=== PATIENT | female | born 1965 | race Caucasian/White ===

== ENCOUNTER 2017-01-17 21:06 | Emergency (ER) | payer OTHER ==
[2017-01-17 21:15] VITALS: BP 140/98; PULSE 74; TEMP 98.7; BMI 23.0
[2017-01-17] MEDS ORDERED: ONDANSETRON *ODT* 4 MG TABLET ONE (21:38)
[2017-01-17] MEDS ORDERED: ONDANSETRON *ODT* 4 MG TABLET SL ONE (21:49)
--- NOTE | 2017-01-17 21:55 | PDOC ---
History of Present Illness - General Chief Complaint: Nausea/Vomiting Stated Complaint: VOMITING/FEVER/BODY ACHE Time Seen by Provider: 01/17/17 21:25 History Source: Patient Exam Limitations: No Limitations - History of Present Illness Initial Comments: 01/17/17 21:50 , generalized body aches and chills, moist non productive cough, ear and throat pain . Nausea. x 2 days. 01/17/17 21:56 Timing/Duration: unsure, 24 hours Severity: moderate Modifying Factors: improves with: cold therapy Associated Symptoms: reports: cough, fever/chills, headaches, malaise, nausea/ vomiting Past History - Travel Traveled outside of the country in the last 30 days: No Close contact w/someone who was outside of country & ill: No - Past Medical History Allergies/Adverse Reactions: Allergies Allergy/AdvReac Type Severity Reaction Status Date / Time azithromycin [From Zithromax] Allergy Verified 01/17/17 21:12 Home Medications: Ambulatory Orders Interferon Beta-1A [Avonex] 30 mcg IM 01/17/17 Modafinil [Provigil] 100 mg PO 01/17/17 Oseltamivir Phosphate [Tamiflu -] 75 mg PO BID #10 capsule 01/17/17 Other medical history: MS - Surgical History Abdominal Surgery: Yes (tubal ligation) Gastric Stapling: Yes (bypass 2008) - Immunization History Td Vaccination: Yes Immunization Up to Date: Yes - Psycho/Social/Smoking Cessation Hx Anxiety: No Suicidal Ideation: No Smoking Status: No Smoking History: Never smoked Years of Tobacco Use: 0 Number of Cigarettes Smoked Daily: 0 Cigars Per Day: 1 Information on smoking cessation initiated: No Hx Alcohol Use: No Drug/Substance Use Hx: No Review of Systems - Review of Systems Able to Perform ROS?: Yes Is the patient limited Lithuanian proficient: Yes Constitutional: Yes: Symptoms Reported, See HPI, Chills, Fever, Loss of Appetite , Malaise HEENTM: Yes: Symptoms Reported, See HPI, Ear Pain, Nose Congestion, Throat Pain Respiratory: Yes: Symptoms reported, See HPI, Cough (nonproductive) ABD/GI: Yes: Symptoms Reported, See HPI, Nausea, Vomiting Musculoskeletal: Yes: Symptoms Reported, Muscle Pain Integumentary: Yes: Symptoms Reported All Other Systems: Reviewed and Negative *Physical Exam - Vital Signs Last Vital Signs Temp Pulse Resp BP Pulse Ox 98.7 F 74 14 140/98 97 01/17/17 21:13 01/17/17 21:13 01/17/17 21:13 01/17/17 21:13 01/17/17 21:13 - Physical Exam General Appearance: Yes: Nourished, Appropriately Dressed, Apparent Distress, Mild Distress, Moderate Distress HEENT: positive: DOMENIC (glassy), Normal ENT Inspection, TMs Normal (congested), Pharyngeal Erythema, Nasal Congestion, Rhinorrhea Neck: positive: Supple, Lymphadenopathy (R), Lymphadenopathy (L) Respiratory/Chest: positive: Lungs Clear, Normal Breath Sounds (congested but clear ), Wheezing Cardiovascular: positive: Regular Rate Gastrointestinal/Abdominal: positive: Normal Bowel Sounds, Soft Extremity: positive: Normal Capillary Refill, Normal Inspection Integumentary: positive: Dry, Warm, Pale 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 Avoid contact with others until fevers and cough resolved as this is very contagious Lots of handwashing and good hygiene Continue [id number] medications for symptomatic relief Tylenol or Motrin for fever and pain Take all of Tamiflu as directed: 1 tab every 12 hours for 5 days Followup with private physician in one to 2 days as needed or if worsening Return to emergency department for worsened symptoms, fevers, dehydration Influenza takes between 5 and 7 days for resolution To not participate in any activity, work, or school until fevers and cough are gone for at least one day - Post Discharge Activity Work/School Note: Back to Work
== END 2017-01-17 22:22 | disposition home or self-care (01) ==
LOC: JERFT 21:06
DX: J11.1 Influenza due to unidentified influenza virus with other respiratory manifestations (principal)
CPT/HCPCS: 99281-25

== ENCOUNTER 2017-08-25 20:42 | Emergency (ER) | payer OTHER ==
[2017-08-25 20:53] VITALS: BP 137/102; PULSE 65; TEMP 98.2; BMI 23.1
[2017-08-25] MEDS ORDERED: IBUPROFEN 600 MG TABLET (FP) PO ONE ×2 (20:53→21:04)
--- NOTE | 2017-08-25 20:53 | PDOC ---
Rapid Medical Evaluation Time Seen by Provider: 08/25/17 20:49 Medical Evaluation: Allergies Allergy/AdvReac Type Severity Reaction Status Date / Time azithromycin [From Zithromax] Allergy Verified 01/17/17 21:12 08/25/17 20:50 I have performed a brief in-person evaluation of this patient. The patient presents with a chief complaint of left 3rd toe pain s/p striking it on a baby gait. Pertinent physical exam findings: Ext: erythema and swelling to distal portion of 3rd digit of the left foot. No deformity noted. I have ordered the following: Motrin 600mg PO The patient will proceed to the ED for further evaluation.
--- NOTE | 2017-08-25 21:15 | PDOC ---
History of Present Illness - General Chief Complaint: Pain Stated Complaint: FOOT INJURY Time Seen by Provider: 08/25/17 20:49 History Source: Patient Exam Limitations: No Limitations - History of Present Illness Initial Comments: 08/25/17 21:11 kicked babygate 4 days ago and bruised and injured 3rd left toe 1 week ago, this AM slid into wall and reinjured. Tried to splint unsucessfully. Came for evaluation. Occurred: reports: last week Severity: reports: mild, moderate Pain Location: reports: lower extremity (left 3rd toe) Associated Symptoms (Fall): denies symptoms Past History - Travel Traveled outside of the country in the last 30 days: No Close contact w/someone who was outside of country & ill: No - Past Medical History Allergies/Adverse Reactions: Allergies Allergy/AdvReac Type Severity Reaction Status Date / Time azithromycin [From Zithromax] Allergy Verified 08/25/17 20:51 Home Medications: Ambulatory Orders Interferon Beta-1A [Avonex] 30 mcg IM ASDIR 01/17/17 Modafinil [Provigil] 100 mg PO ASDIR 01/17/17 COPD: No Other medical history: MS - Surgical History Abdominal Surgery: Yes (tubal ligation) Gastric Stapling: Yes (bypass 2008) - Immunization History Td Vaccination: Yes Immunization Up to Date: Yes - Suicide/Smoking/Psychosocial Hx Smoking Status: No Smoking History: Never smoked Years of Tobacco Use: 0 Have you smoked in the past 12 months: No Number of Cigarettes Smoked Daily: 0 Cigars Per Day: 1 Information on smoking cessation initiated: No Hx Alcohol Use: No Drug/Substance Use Hx: No Substance Use Type: None Review of Systems - Review of Systems Able to Perform ROS?: Yes Is the patient limited Moldovan proficient: Yes Constitutional: Yes: Symptoms Reported, See HPI. No: Fever HEENTM: No: Symptoms Reported Musculoskeletal: Yes: Symptoms Reported, See HPI, Joint Pain, Joint Swelling, Joint Stiffness *Physical Exam - Vital Signs Last Vital Signs Temp Pulse Resp BP Pulse Ox 98.2 F 65 18 137/102 99 08/25/17 20:51 08/25/17 20:51 08/25/17 20:51 08/25/17 20:51 08/25/17 20:51 - Physical Exam General Appearance: Yes: Nourished, Appropriately Dressed, Apparent Distress, Mild Distress HEENT: positive: DOMENIC, Normal ENT Inspection, TMs Normal, Pharynx Normal Neck: positive: Supple. 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, Fully Oriented, Alert, Normal Mood/ Affect, Normal Response, Motor Strength 02/26 Progress Note - Progress Note Progress Note: toe fracture , no xray- will treat with carloz tape = *DC/Admit/Observation/Transfer Diagnosis at time of Disposition: Toe fracture, left Qualifiers: Encounter type: initial encounter Toe: lesser toe Fracture type: closed Phalanx : distal Fracture alignment: nondisplaced Qualified Code(s): S92.535A - Nondisplaced fracture of distal phalanx of left lesser toe(s), initial encounter for closed fracture; S92.535A - Nondisplaced fracture of distal phalanx of left lesser toe(s), initial encounter for closed fracture - Discharge Dispostion Disposition: HOME Condition at time of disposition: Stable Admit: No - Patient Instructions Printed Discharge Instructions: DI for Toe Fracture Additional Instructions: Rest, ice to area on and off for 15 minutes 4-6 times a day Avoid heavy lifting or exercise until pain and swelling is resolved or until further directed Keep area highly elevated to reduce swelling Use splints/Kirill wrap as directed Followup with orthopedist in one to 2 days if not improving, if significantly improved may wait one week for followup with orthopedist May use ibuprofen 2-200 mg tablets every 6 hours as needed for pain - Post Discharge Activity Forms/Work/School Notes: Back to Work
== END 2017-08-25 21:16 | disposition home or self-care (01) ==
LOC: JERFT 20:42
PROC: 2W3RX1Z Immobilization of Left Lower Leg using Splint (ICD-10-PCS; principal; 2017-08-25)
DX: S92.535A Nondisplaced fracture of distal phalanx of left lesser toe(s), initial encounter for closed fracture (principal); W22.8XXA Striking against or struck by other objects, initial encounter; Y93.89 Activity, other specified; Y92.019 Unspecified place in single-family (private) house as the place of occurrence of the external cause; G35 Multiple sclerosis; Z98.84 Bariatric surgery status
CPT/HCPCS: 99281-25

== ENCOUNTER 2017-10-07 23:35 | Emergency (ER) | payer OTHER ==
[2017-10-07] MEDS ORDERED: ASPIRIN 81 MG CHEWABLE TABLETS PO ONE (23:46)
[2017-10-07 23:51] VITALS: BMI 23.8
[2017-10-08] MEDS ORDERED: ASPIRIN 81 MG CHEWABLE TABLETS ONE (00:19)
[2017-10-08 00:32] LABS: EOSINOPHIL 1.8 % (0-4.5); MCHC 33.3 g/dl (32.0-36.0); MEAN CELL VOLUME 87.1 fl (80-96); MEAN PLT VOLUME 7.9 fl (7.5-11.1); NEUTROPHILS 48.1 % (42.8-82.8); PLATELET COUNT 207 K/MM3 (134-434); RDW 12.9 % (11.6-15.6); WHITE BLOOD COUNT 4.8 K/mm3 (4.0-10.0)
--- NOTE | 2017-10-08 00:34 | PDOC ---
History of Present Illness - General Chief Complaint: Chest Pain Stated Complaint: CHEST PAIN Time Seen by Provider: 10/07/17 23:43 - History of Present Illness Initial Comments: 10/08/17 00:34 CHIEF COMPLAINT: chest pain HISTORY OF PRESENT ILLNESS: 51 yo F with hx of MS presents to ED with chest pain today. Patient reports that she felt pain from her chest "that went to my back" today when reaching for an object. She also reports the pain began after "shoveling snow this morning." Patient reports that the pain is localized to the right side of her chest and back and does not radiate anywhere. Patient denies any shortness of breath but does report the pain worsens when she breathes deeply. No recent travel or sick contacts. PAST MEDICAL HISTORY: Denies past medical history FAMILY HISTORY: Denies SOCIAL HISTORY: Denies tobacco, alcohol, illicit drug use. SURGICAL HISTORY: Denies ALLERGIES: No known drug allergies REVIEW OF SYSTEMS General/Constitutional: Denies fever or chills. Denies weakness, weight change. HEENT: Denies change in vision. Denies ear pain or discharge. Denies sore throat. Cardiovascular: Denies chest pain or shortness of breath. Respiratory: Denies cough, wheezing, or hemoptysis. Gastrointestinal: Denies nausea, vomiting, diarrhea or constipation. Denies rectal bleeding. Genitourinary: Denies dysuria, frequency, or change in urination. Musculoskeletal: Denies joint or muscle swelling or pain. Denies neck or back pain. Skin and breasts: Denies rash or easy bruising. Neurologic: Denies headache, vertigo, loss of consciousness, or loss of sensation. PHYSICAL EXAM General Appearance: Well-appearing, appropriately dressed. No apparent distress , no intoxication. HEENT: EOMI, PERRLA, normal ENT inspection, normal voice, TMs normal, pharynx normal. No conjunctival pallor. No photophobia, scleral icterus. Neck: Supple. Trachea midline. No tenderness, rigidity, carotid bruit, stridor , lymphadenopathy, or thyromegaly. Respiratory/Chest: Lungs CTAB. No shortness of breath, chest tenderness, respiratory distress, accessory muscle use. No crackles, rales, rhonchi, stridor , wheezing, dullness Cardiovascular: RRR. S1, S2. No JVD, murmur, bradycardia, tachycardia. Vascular Pulses: Dorsalis-Pedis (R): 2+, Dorsalis-Pedis (L): 2+ Gastrointestinal/Abdominal: Normal bowel sounds. Abdomen soft, non-distended. No tenderness or rebound tenderness. No organomegaly, pulsatile mass, guarding , hernia, hepatomegaly, splenomegaly. Lymphatic: No adenopathy, tenderness. Musculoskeletal/Extremities: Normal inspection. FROM of all extremities, normal capillary refill. Pelvis Stable. No CVA tenderness. No tenderness to extremities, pedal edema, swelling, erythema or deformity. Integumentary: Appropriate color, dry, warm. 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 Fully oriented, alert. Appropriate mood/affect. Motor strength 5/5. No appreciable EOM palsy, facial droop or sensory deficit. 10/08/17 02:00 Past History - Past Medical History Allergies/Adverse Reactions: Allergies Allergy/AdvReac Type Severity Reaction Status Date / Time azithromycin [From Zithromax] Allergy Verified 10/07/17 23:49 Home Medications: Ambulatory Orders Interferon Beta-1A [Avonex] 30 mcg IM ASDIR 01/17/17 Modafinil [Provigil] 100 mg PO ASDIR 01/17/17 COPD: No - Surgical History Abdominal Surgery: Yes (tubal ligation) Gastric Stapling: Yes (bypass 2008) - Immunization History Td Vaccination: Yes Immunization Up to Date: Yes - Suicide/Smoking/Psychosocial Hx Smoking Status: No Smoking History: Never smoked Years of Tobacco Use: 0 Have you smoked in the past 12 months: No Number of Cigarettes Smoked Daily: 0 Cigars Per Day: 1 Information on smoking cessation initiated: No Hx Alcohol Use: No Drug/Substance Use Hx: No Substance Use Type: None *Physical Exam - Vital Signs Last Vital Signs Temp Pulse Resp BP Pulse Ox 97.7 F 69 18 118/79 99 10/08/17 02:15 10/08/17 02:15 10/08/17 02:15 10/08/17 02:15 10/08/17 02:15 ED Treatment Course - LABORATORY CBC & Chemistry Diagram: 10/08/17 00:19 10/08/17 00:19 - ADDITIONAL ORDERS Additional order review: Laboratory Results 10/08/17 10/08/17 10/08/17 00:19 00:19 00:19 PT with INR 12.20 H INR 1.08 D-Dimer 249 H Sodium 139 Potassium 3.6 Chloride 104 Carbon Dioxide 24 Anion Gap 11 BUN 18 D Creatinine 0.6 Creat Clearance w eGFR > 60 Random Glucose 87 Calcium 8.8 Magnesium 2.2 Total Bilirubin 0.4 D AST 17 ALT 21 Alkaline Phosphatase 74 Creatine Kinase 115 Troponin I < 0.02 Total Protein 7.1 Albumin 3.6 10/08/17 00:19 RBC 4.84 MCV 87.1 MCHC 33.3 RDW 12.9 D MPV 7.9 Neutrophils % 48.1 Lymphocytes % 41.8 H Monocytes % 7.3 Eosinophils % 1.8 Basophils % 1.0 - RADIOLOGY Radiology Studies Ordered: Category Date Time Status CHEST PA & LAT [RAD] Stat Radiology 10/08/17 00:26 Taken - Medications Given in the ED: ED Medications Discontinued Medications Generic Name Dose Route Start Last Admin Trade Name Freq PRN Reason Stop Dose Admin Aspirin 162 mg 10/07/17 23:46 10/08/17 00:21 Asa - PO 10/07/17 23:47 162 mg ONCE ONE Administration Ketorolac Tromethamine 30 mg 10/08/17 01:10 10/08/17 01:33 Toradol Injection - IVPUSH 10/08/17 01:11 Not Given ONCE ONE Ketorolac Tromethamine 60 mg 10/08/17 01:28 10/08/17 01:53 Toradol Injection - IM 10/08/17 01:29 Not Given ONCE ONE Ketorolac Tromethamine 30 mg 10/08/17 01:51 10/08/17 01:30 Toradol Injection - IM 10/08/17 01:52 30 mg ONCE ONE Administration Medical Decision Making - Medical Decision Making 10/08/17 02:02 51 yo F with hx of MS presents to ED with chest pain today. -CBC, CMP, card profile, PT/INR, Mg -EKG -CXR CXR negative. EKG sinus bradycardia. -30 mg IM Toradol *DC/Admit/Observation/Transfer Diagnosis at time of Disposition: Musculoskeletal chest pain - Discharge Dispostion Disposition: HOME Condition at time of disposition: Stable Admit: No - Referrals Referrals: Dino Porter MD [Staff Physician] - - Patient Instructions Printed Discharge Instructions: DI for Atypical Chest Pain Additional Instructions: As discussed, please follow up with Dr. Porter within the next TWO days. If you develop any new chest pain, shortness of breath, palpitations, headache, weakness, or any new or worsening symptoms, please return to the ER immediately. - Post Discharge Activity
[2017-10-08 00:46] LABS: INR 1.08 (0.82-1.09); PROTHROMBIN TIME (PATIENT) 12.2 SEC (9.98-11.88)
[2017-10-08 00:56] LABS: ALBUMIN 3.6 g/dl (3.4-5.0); ANION GAP 11 (8-16); BILIRUBIN,TOTAL 0.4 mg/dL (0.2-1.0); CALCIUM 8.8 mg/dL (8.5-10.1); CO2 24 mmol/L (21-32); CREATININE 0.6 mg/dL (0.55-1.02); GLUCOSE,RANDOM 87 mg/dL (74-106); MAGNESIUM 2.2 mg/dL (1.8-2.4); SGOT/AST 17 U/L (15-37); SGPT/ALT 21 U/L (12-78); TOT PROT 7.1 g/dl (6.4-8.2)
[2017-10-08 00:59] LABS: ALK PHOS 74 U/L (45-117); CPK 115 IU/L (26-192); TROPONIN I < 0.02 ng/ml (0.00-0.05)
[2017-10-08] MEDS ORDERED: KETOROLAC TROMETHAMINE 30 MG/1 ML VIAL IVPUSH ONE (01:10)
[2017-10-08] MEDS ORDERED: KETOROLAC TROMETHAMINE 30 MG/1 ML VIAL ONE (01:28)
[2017-10-08] MEDS ORDERED: KETOROLAC TROMETHAMINE 60 MG/2 ML VIAL IM ONE ×2 (01:28→01:51)
[2017-10-08 02:56] VITALS: BP 159/94; PULSE 66; TEMP 97.9
--- NOTE | 2017-10-08 09:13 | EKG ---
Test Reason : Blood Pressure : / mmHG Vent. Rate : 057 BPM Atrial Rate : 057 BPM P-R Int : 178 ms QRS Dur : 090 ms QT Int : 464 ms P-R-T Axes : 059 -10 057 degrees QTc Int : 451 ms SINUS BRADYCARDIA WHEN COMPARED WITH ECG OF 07-APR-2011 12:14, NONSPECIFIC T WAVE ABNORMALITY, IMPROVED IN ANTEROLATERAL LEADS Confirmed by CORINNE MCGREGOR MD ([id number]) on 10/08/2017 9:13:29 AM Referred By: Confirmed By:CORINNE MCGREGOR MD
== END 2017-10-08 02:56 | disposition home or self-care (01) ==
LOC: JER 23:35
PROC: 3E0233Z Introduction of Anti-inflammatory into Muscle, Percutaneous Approach (ICD-10-PCS; principal; 2017-10-07)
DX: R07.89 Other chest pain (principal); G35 Multiple sclerosis; Z98.84 Bariatric surgery status
CPT/HCPCS: 36415; 71020-TC; 80053; 82550; 83735; 84484; 85025; 85379; 85610; 93005; 93010; 99282-25

== ENCOUNTER 2018-03-08 05:24 | Day surgery (SDC) | payer OTHER ==
[2018-03-07 08:58] VITALS: BMI 23.8
[2018-03-08] MEDS ORDERED: MIDAZOLAM HCL 2 MG/2 ML SINGLE DOSE VIAL ONE (10:24)
[2018-03-08] MEDS ORDERED: PROPOFOL 20 ML ONE (10:25)
--- NOTE | 2018-03-08 10:34 | HP ---
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 Cardiovascular: Yes: HTN - Past Surgical History Past Surgical History: Yes: Bariatric Surgery Hx Myomectomy: No Hx Transabdominal Cerclage: No - Smoking History Smoking history: Never smoked Have you smoked in the past 12 months: No Aproximately how many cigarettes per day: 0 - Alcohol/Substance Use Hx Alcohol Use: No Home Medications - Allergies Allergies/Adverse Reactions: Allergies Allergy/AdvReac Type Severity Reaction Status Date / Time azithromycin [From Zithromax] Allergy Severe Swelling Verified 03/08/18 08:31 - Home Medications Home Medications: Ambulatory Orders Interferon Beta-1A [Avonex] 30 mcg IM WEEKLY 01/17/17 Review of Systems - Review of Systems Constitutional: reports: No Symptoms Eyes: reports: No Symptoms HENT: reports: No Symptoms Neck: reports: No Symptoms Cardiovascular: reports: No Symptoms Respiratory: reports: No Symptoms Gastrointestinal: reports: No Symptoms Genitourinary: reports: No Symptoms Breasts: reports: No Symptoms Reported Musculoskeletal: reports: No Symptoms Integumentary: reports: No Symptoms Neurological: reports: No Symptoms Endocrine: reports: No Symptoms Hematology/Lymphatic: reports: No Symptoms Psychiatric: reports: No Symptoms 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: Vital Signs Temperature 98.3 F 03/08/18 08:21 Pulse Rate 74 03/08/18 08:21 Respiratory Rate 16 03/08/18 08:21 Blood Pressure 129/62 03/08/18 08:21 O2 Sat by Pulse Oximetry (%) 96 03/08/18 08:21 Constitutional: Yes: Well Nourished, No Distress, Calm Eyes: Yes: WNL, Conjunctiva Clear, EOM Intact HENT: Yes: WNL, Atraumatic, Normocephalic Neck: Yes: WNL, Supple, Trachea Midline Cardiovascular: Yes: WNL, Regular Rate and Rhythm Respiratory: Yes: WNL, Regular, CTA Bilaterally Gastrointestinal: Yes: WNL ...Rectal Exam: Yes: WNL Renal/: Yes: WNL External Genitalia: Yes: Normal, Cystocele Vaginal Exam: Yes: Normal Uterus: Yes: Normal Adnexa: Not Palpable: Left, Right Breast(s): Yes: WNL Musculoskeletal: Yes: WNL Extremities: Yes: WNL Edema: No Integumentary: Yes: WNL Neurological: Yes: WNL, Alert, Oriented ...Motor Strength: WNL Psychiatric: Yes: WNL, Alert, Oriented Problem List - Problem (1) Postmenopausal vaginal bleeding Code(s): N95.0 - POSTMENOPAUSAL BLEEDING Assessment/Plan hysteroscopy D&C
[2018-03-08] MEDS ORDERED: IBUPROFEN 800 MG/8 ML IJ IVPB PRN (10:58)
[2018-03-08] MEDS ORDERED: ONDANSETRON 4 MG/2 ML VIAL IVPUSH PRN ×2 (10:58→10:59)
[2018-03-08] MEDS ORDERED: IBUPROFEN 600 MG TABLET (FP) PO PRN (10:58)
[2018-03-08] MEDS ORDERED: oxyCODONE HCL 5 MG TABLET PO PRN (10:58)
[2018-03-08] MEDS ORDERED: LACTATED RINGERS SOLUTION 1,000 ML IV SCH (11:00)
[2018-03-08] MEDS ORDERED: ELECTROLYTE-148 SOLN 1,000 ML IV SCH (11:00)
[2018-03-08 11:38] VITALS: TEMP 98.2
[2018-03-08 12:37] VITALS: BP 130/71; PULSE 61
--- NOTE | 2018-03-08 12:59 | OP ---
DATE OF OPERATION: 03/08/2018 PREOPERATIVE DIAGNOSIS: Postmenopausal bleeding. POSTOPERATIVE DIAGNOSIS: Postmenopausal bleeding. PROCEDURE: Hysteroscopy, dilation and curettage. SURGEON: Karlos Talbert MD ANESTHESIA: General. ANESTHESIOLOGIST: Cammy Bhagat MD ESTIMATED BLOOD LOSS: Minimal. DESCRIPTION OF PROCEDURE: The patient was taken to the operating room. Under adequate general anesthesia, examination under anesthesia revealed external genitalia to be normal. Vagina was normal. There was a large cystocele and a small rectocele, and a 1st degree uterine prolapse was noted. The uterus was normal size. Adnexa no masses palpable. Then with a weighted speculum in the vagina, anterior lip of the cervix was grasped with a single-tooth tenaculum. Cervix was stenotic and difficult to dilate and finally was dilated with Hegar dilator. Uterine cavity sounded to 7 cm. Then hysteroscope was introduced and visualization of endocervical canal appeared to be normal. Uterine cavity was atrophic. No polypoid fibroid was seen. Both cornual regions were identified. No other abnormalities were noted. Then hysteroscope was withdrawn and cervix was gradually dilated with Hegar dilator and the endometrium was curetted. The patient tolerated the procedure well and left the OR in good condition. KARLOS TALBERT M.D. [id number]
--- NOTE | 2018-03-09 13:26 | PATH ---
Surgical Pathology Report Patient Name: MARIELA QUEVEDO [facility]. Rec. #: [id number] /Age/Gender: 1965 (Age: 52) / F Account: [id number] Location: [facility] Taken: 03/08/2018 Received: 03/08/2018 Reported: 03/09/2018 Physicians: Karlos Talbert M.D. Specimen(s) Received ENDOMETRIAL CURETTINGS Clinical History Postmenopausal bleeding Final Diagnosis ENDOMETRIAL CURETTINGS: FEW FRAGMENTS OF ENDOMETRIAL STROMA AND SCANTY STRIPS OF SUPERFICIAL GLANDS. SEPARATE FRAGMENTS OF SQUAMOUS EPITHELIUM, NO DIAGNOSTIC ABNORMALITIES. Electronically Signed Fortunato Mishra M.D. Gross Description Received in formalin labeled "endometrial curettings," is a 0.4 x 0.4 x 0.1 cm aggregate of herron red soft tissue fragments. The formalin is filtered and the specimen is entirely submitted in one cassette. /03/08/2018 saudi/03/08/2018
== END 2018-03-08 13:00 | disposition home or self-care (01) ==
LOC: JASU-SURG 05:24
PROVIDERS: ATTEND Obstetrics & Gynecology
PROC: 0UDB8ZX Extraction of Endometrium, Via Natural or Artificial Opening Endoscopic, Diagnostic (ICD-10-PCS; principal; 2018-03-08 10:00)
DX: N95.0 Postmenopausal bleeding (principal)
CPT/HCPCS: 88305-TC; 94760

== ENCOUNTER 2018-03-30 02:58 | Observation (INO) | payer OTHER ==
[2018-03-30] MEDS ORDERED: KETOROLAC TROMETHAMINE 30 MG/1 ML VIAL IVPUSH ONE (03:33)
[2018-03-30] MEDS ORDERED: SODIUM CHLORIDE 1,000 ML IV STA (03:33)
[2018-03-30] MEDS ORDERED: KETOROLAC TROMETHAMINE 30 MG/1 ML VIAL ONE (03:42)
--- NOTE | 2018-03-30 03:42 | PDOC ---
History of Present Illness - General History Source: Patient - History of Present Illness Timing/Duration: other <DallasEmilyAlonzo - Last Filed: 03/30/18 06:51> <Jojo Catsillo - Last Filed: 03/30/18 11:29> - General Stated Complaint: SWOLLEN GLANDS Time Seen by Provider: 03/30/18 03:11 Past History - Past Medical History Anemia: No Asthma: No Cancer: No Cardiac Disorders: No CVA: No COPD: No CHF: No Dementia: No Diabetes: No GI Disorders: No Disorders: No HTN: Yes Hypercholesterolemia: No Liver Disease: No Seizures: No Thyroid Disease: No - Surgical History Abdominal Surgery: Yes (tubal ligation) Gastric Stapling: Yes (bypass 2008) Orthopedic Surgery: Yes - Immunization History Td Vaccination: Yes Immunization Up to Date: Yes - Suicide/Smoking/Psychosocial Hx Smoking Status: No Smoking History: Never smoked Years of Tobacco Use: 0 Have you smoked in the past 12 months: No Number of Cigarettes Smoked Daily: 0 Cigars Per Day: 1 Hx Alcohol Use: No Drug/Substance Use Hx: No Substance Use Type: None Hx Substance Use Treatment: No <Emily MccartyAlonzo Last Filed: 03/30/18 06:51> <Jojo Castillo - Last Filed: 03/30/18 11:29> - Past Medical History Allergies/Adverse Reactions: Allergies Allergy/AdvReac Type Severity Reaction Status Date / Time azithromycin [From Zithromax] Allergy Severe Swelling Verified 03/08/18 08:31 Home Medications: Ambulatory Orders Interferon Beta-1A [Avonex] 30 mcg IM WEEKLY 01/17/17 Review of Systems - Review of Systems Constitutional: No: Chills, Fever HEENTM: No: Throat Pain, Throat Swelling, Mouth Swelling Respiratory: No: Shortness of Breath, Stridor ABD/GI: No: Nausea, Vomiting <Clint Mccarty Filed: 03/30/18 06:51> *Physical Exam - Physical Exam General Appearance: Yes: Appropriately Dressed. No: Apparent Distress HEENT: positive: Normal ENT Inspection, Normal Voice, TMs Normal, Pharynx Normal , Other (not currently wearing dentures, no intra-oral/sublingual tendernss or swelling, no salivary gland stone visualized, b/l submandibualr swelling present , L>R w/ ttp). negative: Muffled/Hoarse voice, Pharyngeal Erythema, Tonsillar Exudate, Tonsillar Erythema Neck: positive: Supple. negative: Stridor, Lymphadenopathy (R), Lymphadenopathy (L) Respiratory/Chest: negative: Respiratory Distress Integumentary: positive: Dry, Warm Neurologic: positive: Fully Oriented, Alert, Normal Mood/Affect <Clint Mccarty - Last Filed: 03/30/18 06:51> - Vital Signs Last Vital Signs Temp Pulse Resp BP Pulse Ox 98.1 F 63 18 147/52 97 03/30/18 03:00 03/30/18 07:21 03/30/18 07:21 03/30/18 07:21 03/30/18 07:21 <Jojo Castillo - Last Filed: 03/30/18 11:29> ED Treatment Course - LABORATORY CBC & Chemistry Diagram: 03/30/18 03:50 03/30/18 05:21 - RADIOLOGY Radiology Studies Ordered: Category Date Time Status SOFT TISSUE NECK CT WITH CONTR [CT] Stat CT Scan 03/30/18 03:33 Ordered <Clint Mccarty - Last Filed: 03/30/18 06:51> - LABORATORY CBC & Chemistry Diagram: 03/30/18 03:50 03/30/18 05:21 - ADDITIONAL ORDERS Additional order review: Laboratory Results 03/30/18 03/30/18 05:21 03:50 Sodium 141 Cancelled Potassium 3.4 L Cancelled Chloride 108 H Cancelled Carbon Dioxide 29 Cancelled Anion Gap 4 L Cancelled BUN 13 Cancelled Creatinine 0.5 L Cancelled Creat Clearance w eGFR > 60 Cancelled Random Glucose 93 Cancelled Calcium 8.0 L Cancelled Total Bilirubin 0.4 D Cancelled AST 22 Cancelled ALT 24 Cancelled Alkaline Phosphatase 78 Cancelled Total Protein 6.6 Cancelled Albumin 3.3 L Cancelled 03/30/18 03:50 RBC 5.25 H MCV 87.1 MCHC 33.5 RDW 13.0 MPV 7.7 Neutrophils % 61.6 Lymphocytes % 30.5 Monocytes % 5.8 Eosinophils % 1.2 Basophils % 0.9 - Medications Given in the ED: ED Medications Discontinued Medications Generic Name Dose Route Start Last Admin Trade Name Freq PRN Reason Stop Dose Admin Sodium Chloride 1,000 mls @ 1,000 mls/hr 03/30/18 03:33 03/30/18 03:37 Normal Saline - IV 03/30/18 04:32 1,000 mls/hr ASDIR STA Administration Ketorolac Tromethamine 30 mg 03/30/18 03:33 03/30/18 03:37 Toradol Injection - IVPUSH 03/30/18 03:34 30 mg ONCE ONE Administration <Jojo Castillo - Last Filed: 03/30/18 11:29> Medical Decision Making - Medical Decision Making 03/30/18 03:35 52-year-old female, history of MS, s/p recent unclear facial/dental surgery, wears dentures, here w/ b/l facial pain/swelling, L>R. 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 Currently following up with dental to have bilateral lower extremity "caps" placed but states dentist has not been able to do so secondary to continued postoperative pain that appears to be getting worse as per patient. Saw her dentist 2 days ago who states that this amount of pain this far out from her surgery is abnormal and patient told to follow up with her surgeon with whom she has an appointment next Wednesday. Here tonight because she developed facial swelling last night, left side greater than right. Denies difficulty breathing, dysphagia, and no fever, chills, nausea or vomiting See exam R/o abscess s/p recent mandibular construction Stable and in NAD w/ b/l submandibular swelling, L>R, airway clear w/ no stridor , no e/o ludwigs -pain control -labs -CT 03/30/18 06:51 Patient signed out to ISRAEL Castillo pending CT <Clint Mccarty - Last Filed: 03/30/18 06:51> *DC/Admit/Observation/Transfer <Clint Mccarty - Last Filed: 03/30/18 06:51> - Discharge Dispostion Decision to Admit order: Yes <Jojo Castillo - Last Filed: 03/30/18 11:29> Diagnosis at time of Disposition: Cellulitis Qualifiers: Site of cellulitis: face Qualified Code(s): L03.211 - Cellulitis of face - Discharge Dispostion Condition at time of disposition: Stable - Referrals Referrals: Dino Porter MD [Primary Care Provider] - - Patient Instructions - Post Discharge Activity
[2018-03-30 04:02] LABS: BASO % 0.9 % (0-2.0); EOS % 1.2 % (0-4.5); HEMATOCRIT 45.7 % (32.4-45.2); HEMOGLOBIN 15.3 GM/dL (10.7-15.3); LYMPH % 30.5 % (8-40); MCH 29.2 pg (25.7-33.7); MCHC 33.5 g/dl (32.0-36.0); MEAN CELL VOLUME 87.1 fl (80-96); MEAN PLT VOLUME 7.7 fl (7.5-11.1); MONO % 5.8 % (3.8-10.2); NEUT % 61.6 % (42.8-82.8); PLATELET COUNT 234 K/MM3 (134-434); RBC 5.25 M/mm3 (3.60-5.2); WHITE BLOOD COUNT 6.9 K/mm3 (4.0-10.0)
[2018-03-30 05:54] VITALS: TEMP 98.1; BMI 22.6
[2018-03-30 06:16] LABS: ALBUMIN 3.3 g/dl (3.4-5.0); ANION GAP 4 (8-16); BILIRUBIN,TOTAL 0.4 mg/dL (0.2-1.0); BLOOD UREA NITROGEN 13 mg/dL (7-18); CHLORIDE 108 mmol/L (98-107); CO2 29 mmol/L (21-32); CREATININE 0.5 mg/dL (0.55-1.02); GLUCOSE,RANDOM 93 mg/dL (74-106); POTASSIUM 3.4 mmol/L (3.5-5.1); SGOT/AST 22 U/L (15-37); SGPT/ALT 24 U/L (12-78); SODIUM 141 mmol/L (136-145); TOT PROT 6.6 g/dl (6.4-8.2)
[2018-03-30 06:17] LABS: ALK PHOS 78 U/L (45-117)
--- NOTE | 2018-03-30 07:30 | PDOC ---
ED Treatment Course - LABORATORY CBC & Chemistry Diagram: 03/30/18 03:50 03/30/18 05:21 - ADDITIONAL ORDERS Additional order review: Laboratory Results 03/30/18 03/30/18 05:21 03:50 Sodium 141 Cancelled Potassium 3.4 L Cancelled Chloride 108 H Cancelled Carbon Dioxide 29 Cancelled Anion Gap 4 L Cancelled BUN 13 Cancelled Creatinine 0.5 L Cancelled Creat Clearance w eGFR > 60 Cancelled Random Glucose 93 Cancelled Calcium 8.0 L Cancelled Total Bilirubin 0.4 D Cancelled AST 22 Cancelled ALT 24 Cancelled Alkaline Phosphatase 78 Cancelled Total Protein 6.6 Cancelled Albumin 3.3 L Cancelled 03/30/18 03:50 RBC 5.25 H MCV 87.1 MCHC 33.5 RDW 13.0 MPV 7.7 Neutrophils % 61.6 Lymphocytes % 30.5 Monocytes % 5.8 Eosinophils % 1.2 Basophils % 0.9 - Medications Given in the ED: ED Medications Discontinued Medications Generic Name Dose Route Start Last Admin Trade Name Freq PRN Reason Stop Dose Admin Sodium Chloride 1,000 mls @ 1,000 mls/hr 03/30/18 03:33 03/30/18 03:37 Normal Saline - IV 03/30/18 04:32 1,000 mls/hr ASDIR STA Administration Ketorolac Tromethamine 30 mg 03/30/18 03:33 03/30/18 03:37 Toradol Injection - IVPUSH 03/30/18 03:34 30 mg ONCE ONE Administration Progress Note - Progress Note Progress Note: I have received report from ISRAEL Mccarty regarding this patient. Pt's initial chief complaint: facial swelling and pain Pt's work up completed prior to sign out: labs Pt treatment given from prior staff: toradol and IV fluids Pt plan to be completed: Awaiting CT scan Dispo: Pending Medical Decision Making - Medical Decision Making A/P: 52 y/o female with PMH MS c/o b/l facial pain/swelling, L>R. The patient was initially examined by ISRAEL Mccarty. Labs unremarkable. Awaiting CT scan of facial bones. If no pathology will discharge to home to f/u with surgeon. CT scan facial bones IMPRESSION: Left mandibular soft tissue edema and adenopathy suggests infection without abscess or osteomyelitis. Will admit to hospitalist for IV abx and ID consult. ITZEL Morris accepts admission on behalf of Dr. Moore *DC/Admit/Observation/Transfer Diagnosis at time of Disposition: Cellulitis - Discharge Dispostion Condition at time of disposition: Stable - Referrals Referrals: Dino Porter MD [Primary Care Provider] - - Patient Instructions - Post Discharge Activity
[2018-03-30 12:21] VITALS: BP 165/84; PULSE 65
--- NOTE | 2018-04-01 12:16 | HP ---
CHIEF COMPLAINT: PCP: HISTORY OF PRESENT ILLNESS: ER course was notable for: (1) (2) (3) Recent Travel: PAST MEDICAL HISTORY: PAST SURGICAL HISTORY: Social History: Smoking: Alcohol: Drugs: Family History: Allergies azithromycin [From Zithromax] Allergy (Severe, Verified 03/08/18 08:31) Swelling HOME MEDICATIONS: Home Medications Medication Instructions Recorded Interferon Beta-1A [Avonex] 30 mcg IM WEEKLY 01/17/17 REVIEW OF SYSTEMS CONSTITUTIONAL: Absent: fever, chills, diaphoresis, generalized weakness, malaise, loss of appetite, weight change HEENT: Absent: rhinorrhea, nasal congestion, throat pain, throat swelling, difficulty swallowing, mouth swelling, ear pain, eye pain, visual changes CARDIOVASCULAR: Absent: chest pain, syncope, palpitations, irregular heart rate, lightheadedness , peripheral edema RESPIRATORY: Absent: cough, shortness of breath, dyspnea with exertion, orthopnea, wheezing, stridor, hemoptysis GASTROINTESTINAL: Absent: abdominal pain, abdominal distension, nausea, vomiting, diarrhea, constipation, melena, hematochezia GENITOURINARY: Absent: dysuria, frequency, urgency, hesitancy, hematuria, flank pain, genital pain MUSCULOSKELETAL: Absent: myalgia, arthralgia, joint swelling, back pain, neck pain SKIN: Absent: rash, itching, pallor HEMATOLOGIC/IMMUNOLOGIC: Absent: easy bleeding, easy bruising, lymphadenopathy, frequent infections ENDOCRINE: Absent: unexplained weight gain, unexplained weight loss, heat intolerance, cold intolerance NEUROLOGIC: Absent: headache, focal weakness or paresthesias, dizziness, unsteady gait, seizure, mental status changes, bladder or bowel incontinence PSYCHIATRIC: Absent: anxiety, depression, suicidal or homicidal ideation, hallucinations. PHYSICAL EXAMINATION GENERAL: Awake, alert, and fully oriented, in no acute distress. HEAD: Normal with no signs of trauma. EYES: Pupils equal, round and reactive to light, extraocular movements intact, sclera anicteric, conjunctiva clear. No lid lag. EARS, NOSE, THROAT: Ears normal, nares patent, oropharynx clear without exudates. Moist mucous membranes. NECK: Normal range of motion, supple without lymphadenopathy, JVD, or masses. LUNGS: Breath sounds equal, clear to auscultation bilaterally. No wheezes, and no crackles. No accessory muscle use. HEART: Regular rate and rhythm, normal S1 and S2 without murmur, rub or gallop. ABDOMEN: Soft, nontender, not distended, normoactive bowel sounds, no guarding, no rebound, no masses. No hepatomegaly or splenomegaly. MUSCULOSKELETAL: Normal range of motion at all joints. No bony deformities or tenderness. No CVA tenderness. UPPER EXTREMITIES: 2+ pulses, warm, well-perfused. No cyanosis. No clubbing. No peripheral edema. LOWER EXTREMITIES: 2+ pulses, warm, well-perfused. No calf tenderness. No peripheral edema. NEUROLOGICAL: Cranial nerves II-XII intact. Normal speech. Normal gait. PSYCHIATRIC: Cooperative. Good eye contact. Appropriate mood and affect. SKIN: Warm, dry, normal turgor, no rashes or lesions noted, normal capillary refill. ASSESSMENT/PLAN: Hospitalist Screening - Colonoscopy Questionnaire Colonoscopy Questionnaire: Colonoscopy Questionnaire
--- NOTE | 2018-04-01 12:16 | DS ---
Physical Exam: SUBJECTIVE: Patient seen and examined OBJECTIVE: PHYSICAL EXAM GENERAL: The patient is awake, alert, and fully oriented, in no acute distress. HEAD: Normal with no signs of trauma. EYES: PERRL, extraocular movements intact, sclera anicteric, conjunctiva clear. ENT: Ears normal, nares patent, oropharynx clear without exudates, moist mucous membranes. NECK: Trachea midline, full range of motion, supple. LUNGS: Breath sounds equal, clear to auscultation bilaterally, no wheezes, no crackles, no accessory muscle use. HEART: Regular rate and rhythm, S1, S2 without murmur, rub or gallop. ABDOMEN: Soft, nontender, nondistended, normoactive bowel sounds, no guarding, no rebound, no hepatosplenomegaly, no masses. EXTREMITIES: 2+ pulses, warm, well-perfused, no edema. NEUROLOGICAL: Cranial nerves II through XII grossly intact. Normal speech, gait not observed. PSYCH: Normal mood, normal affect. SKIN: Warm, dry, normal turgor, no rashes or lesions noted. LABS HOSPITAL COURSE: Date of Admission:03/30/18 Date of Discharge: 04/01/18 Discharge Summary Reason For Visit: CELLULITIS Condition: Stable - Instructions Diet, Activity, Other Instructions: We have contacted your oral surgeon Dr. Leo Pearson at [facility]. He is in his office and is ready to see you today. Please proceed directly to his office. Return to the emergency department with any new or worsening symptoms. Referrals: Dino Porter MD [Primary Care Provider] - Disposition: HOME - Home Medications Comprehensive Discharge Medication List: Ambulatory Orders Interferon Beta-1A [Avonex] 30 mcg IM WEEKLY 01/17/17
== END 2018-03-30 12:59 | disposition home or self-care (01) ==
LOC: JER 02:58 → INTOOBSV 11:29 → JERBED 11:29 → UNDOADMOB 11:29 → JERBED 12:21
PROVIDERS: ADMIT Internal Medicine; ATTEND Internal Medicine
PROC: 3E0333Z Introduction of Anti-inflammatory into Peripheral Vein, Percutaneous Approach (ICD-10-PCS; principal; 2018-03-30)
PROC: 3E0337Z Introduction of Electrolytic and Water Balance Substance into Peripheral Vein, Percutaneous Approach (ICD-10-PCS; 2018-03-30)
DX: L03.211 Cellulitis of face (principal)
CPT/HCPCS: 36415; 70491-TC; 80053; 85025; 96361; 96374; 99283-25; G0378; J7030

== ENCOUNTER 2018-09-06 09:00 | Emergency (ER) | payer OTHER ==
[2018-09-06 09:24] VITALS: BP 162/83; PULSE 72; TEMP 98.7; BMI 22.3
--- NOTE | 2018-09-06 10:04 | PDOC ---
History of Present Illness - General Chief Complaint: Cold Symptoms Stated Complaint: COUGH,CONGESTION Time Seen by Provider: 09/06/18 09:25 History Source: Patient Exam Limitations: No Limitations - History of Present Illness Initial Comments: 09/06/18 10:46 Patient is a 52-year-old female with past medical history of MS, who presents to the emergency department today for 2 days of cough, diarrhea, and nausea. Patient states that she takes care of her grandson who is had similar symptoms for over a week. Denies vomiting, earache, difficulty breathing, chest pain, vomiting. Past History - Travel Traveled outside of the country in the last 30 days: No Close contact w/someone who was outside of country & ill: No - Past Medical History Allergies/Adverse Reactions: Allergies Allergy/AdvReac Type Severity Reaction Status Date / Time azithromycin [From Zithromax] Allergy Severe Swelling Verified 09/06/18 09:21 Home Medications: Ambulatory Orders Interferon Beta-1A [Avonex] 30 mcg IM WEEKLY 01/17/17 Amoxicillin - [Amoxicillin 500mg Capsule -] 500 mg PO BID #14 capsule 09/06/18 Ibuprofen 800 mg PO TID #30 tablet 09/06/18 Anemia: No Asthma: No Cancer: No Cardiac Disorders: No CVA: No COPD: No CHF: No Dementia: No Diabetes: No GI Disorders: No Disorders: No HTN: Yes Hypercholesterolemia: No Liver Disease: No Seizures: No Thyroid Disease: No - Surgical History Abdominal Surgery: Yes (tubal ligation) Gastric Stapling: Yes (bypass 2008) Orthopedic Surgery: Yes - Immunization History Td Vaccination: Yes Immunization Up to Date: Yes - Suicide/Smoking/Psychosocial Hx Smoking Status: No Smoking History: Never smoked Years of Tobacco Use: 0 Have you smoked in the past 12 months: No Number of Cigarettes Smoked Daily: 0 Cigars Per Day: 1 Hx Alcohol Use: No Drug/Substance Use Hx: No Substance Use Type: None Hx Substance Use Treatment: No Review of Systems - Review of Systems Able to Perform ROS?: Yes Comments:: 09/06/18 10:43 CONSTITUTIONAL: Present: chills Absent: fever, diaphoresis, generalized weakness, malaise, loss of appetite HEENT: Present: rhinorrhea Absent: nasal congestion, throat pain, throat swelling, difficulty swallowing, mouth swelling, ear pain, eye pain, visual Changes CARDIOVASCULAR: Absent: chest pain, loss of consciousness, palpitations, irregular heart rate, peripheral edema RESPIRATORY: Present: cough Absent: shortness of breath, dyspnea with exertion, orthopnea, wheezing, stridor, hemoptysis GASTROINTESTINAL: Present: nausea, diarrhea Absent: abdominal pain, abdominal distension, vomiting , constipation, melena, hematochezia GENITOURINARY: Absent: dysuria, frequency, urgency, hesitancy, hematuria, flank pain, genital pain MUSCULOSKELETAL: Absent: myalgia, arthralgia, joint swelling SKIN: Absent: rash, itching, pallor HEMATOLOGIC/IMMUNOLOGIC: Absent: easy bleeding, easy bruising, lymphadenopathy, frequent infections ENDOCRINE: Absent: unexplained weight gain, unexplained weight loss, heat intolerance, cold intolerance NEUROLOGIC: Absent: headache, focal weakness or paresthesias, dizziness, unsteady gait, seizure, mental status changes, bladder or bowel incontinence PSYCHIATRIC: Absent: anxiety, depression, suicidal or homicidal ideation, hallucinations. Is the patient limited Cypriot proficient: No *Physical Exam - Vital Signs Last Vital Signs Temp Pulse Resp BP Pulse Ox 98.7 F 72 16 162/83 94 L 09/06/18 09:22 09/06/18 09:22 09/06/18 09:22 09/06/18 09:22 09/06/18 09:22 - Physical Exam Comments: 09/06/18 10:47 GENERAL: Well developed, well nourished. Awake and alert. No acute distress. HEENT: Normocephalic, atraumatic. PERRLA, EOMI. No conjunctival pallor. Sclera are non- icteric. Moist mucous membranes. Oropharynx is clear. NECK: Supple. Full ROM. No JVD. Carotid pulses 2+ and symmetric, without bruits. No thyromegaly. No lymphadenopathy. CARDIOVASCULAR: Regular rate and rhythm. No murmurs, rubs, or gallops. Distal pulses are 2+ and symmetric. PULMONARY: No evidence of respiratory distress. Lungs clear to auscultation bilaterally with diminished sounds to the bases. No wheezing, rales or rhonchi. ABDOMINAL: Soft. Non-tender. Non-distended. No rebound or guarding. No organomegaly. Normoactive bowel sounds. MUSCULOSKELETAL Normal range of motion at all joints. No bony deformities or tenderness. No CVA tenderness. EXTREMITIES: No cyanosis. No clubbing. No edema. No calf tenderness. SKIN: Warm and dry. Normal capillary refill. No rashes. No jaundice. NEUROLOGICAL: Alert, awake, appropriate. Cranial nerves 2-12 intact. No deficits to light touch and temperature in face, upper extremities and lower extremities. No motor deficits in the in face, upper extremities and lower extremities. Normoreflexic in the upper and lower extremities. Normal speech. Toes are down- going bilaterally. Gait is normal without ataxia. PSYCHIATRIC: Cooperative. Good eye contact. Appropriate mood and affect. ED Treatment Course - RADIOLOGY Radiology Studies Ordered: Category Date Time Status CHEST PA & LAT [RAD] Stat Radiology 09/06/18 09:51 Ordered Medical Decision Making - Medical Decision Making 09/06/18 10:47 Patient is a 52-year-old female who presents to the emergency department today for 3 days of diarrhea, cough. Exam is with decreased lung sounds at the bases. Throat is nonerythematous. TMs normal. Patient's grandchild also the emergency department at this time. He has tested positive for strep throat. Given she has similar symptoms, we'll also treat for strep throat at this time. X-rays negative for pneumonia VSS, pt afebrile DC home with amoxicillin. I discussed the physical exam findings, ancillary test results and final diagnoses with the patient. I answered all of the patient's questions. The patient was satisfied with the care received and felt comfortable with the discharge plan and treatment plan. The Patient agrees to follow up with the primary care physician/specialist within 24-72 hours. Return precautions were given. *DC/Admit/Observation/Transfer Diagnosis at time of Disposition: Pharyngitis Qualifiers: Pharyngitis/tonsillitis etiology: unspecified etiology Qualified Code(s): J02.9 - Acute pharyngitis, unspecified - Discharge Dispostion Disposition: HOME Condition at time of disposition: Stable Decision to Admit order: No - Prescriptions Prescriptions: Amoxicillin - [Amoxicillin 500mg Capsule -] 500 mg PO BID #14 capsule Ibuprofen 800 mg PO TID #30 tablet - Referrals Referrals: Dino Porter MD [Primary Care Provider] - - Patient Instructions Printed Discharge Instructions: DI for Strep Throat Additional Instructions: You have strep throat. This is a bacterial infection. Please take the amoxicillin 500 mg twice a day for one week. Please finish the prescription even if you feel better. You may take Motrin 800 mg every 8 hours as needed for pain or fever. Warm water gargles and cough drops and just may also help her symptoms. Please throw way your toothbrush 3 days into treatment to prevent reinfection. Please follow up with your primary care doctor next week. Return to emergency department if you have worsening pain, difficulty swallowing , changes in your voice, lightheadedness, dizziness, or any changes in your symptoms. - Post Discharge Activity Forms/Work/School Notes: Back to Work
== END 2018-09-06 10:49 | disposition home or self-care (01) ==
LOC: JERFT 09:00
DX: J02.9 Acute pharyngitis, unspecified (principal); I10 Essential (primary) hypertension
CPT/HCPCS: 71046-TC-FY; 99281-25

== ENCOUNTER 2020-01-14 12:29 | Emergency (ER) | payer OTHER ==
[2020-01-14 12:34] VITALS: BP 138/90; PULSE 106; TEMP 99
[2020-01-14 12:51] VITALS: BMI 26.5
--- NOTE | 2020-01-14 12:52 | PDOC ---
Rapid Medical Evaluation Chief Complaint: Cold Symptoms Time Seen by Provider: 01/14/20 12:41 Medical Evaluation: Allergies Allergy/AdvReac Type Severity Reaction Status Date / Time azithromycin [From Zithromax] Allergy Severe Swelling Verified 09/06/18 09:21 Vital Signs Temp Pulse Resp BP Pulse Ox 99 F 106 H 20 138/90 99 01/14/20 12:31 01/14/20 12:31 01/14/20 12:31 01/14/20 12:31 01/14/20 12:01/14/20 12:46 HPI: The patient is a 54 yr old with no past medical history, who presents for moist cough x 2 days and fever x 2 days ( t max 103.7). Pt with hx of ms and cervical cancer. The patient has - exposure to coronavirus. - Recent travel. They are concerned they have coronavirus and present for testing. - difficulty breathing, -shortness of breath,- chest pain, -lightheadedness, -dizziness, - nausea, -vomiting, and - diarrhea. Other 12 point ROS reviewed and negative. EXAM: General: NAD, well-appearing, AAO x3. tachycardic, afebrile ENT: No rhinorrhea or nasal congestion. Neck: FROM, no midline tenderness Lungs: Clear to auscultation bilateral without wheezes rales or rhonchi. Normal excursion. Patient is able to speak in full sentences. Heart: Regular rate and rhythm, S1-S2 present, no murmurs rubs or gallops. Abdomen: Non-distended MSK/Extremities: no decreased ROM, no obvious deformities. No cyanosis Neuro: Normal gait, cranial nerves II through XII grossly intact. SKIN: No rashes, bruising. Color normal appearing A/P: Cough Patient has hx of cervical cancer, ms, denies recent travel and unknown COVID exposure. Patient does not meet criteria for testing at this time. Due to med hx, cxr ordered 01/14/20 13:43 Chest xray -. We will refer the patient to outpatient testing clinics in the [facility] for further monitoring of their symptoms. Strict return precautions given. Instructed that if they should have shortness of breath, chest pain or difficulty breathing to return to the emergency room for further management and treatment. Recommend self-isolation for 14 days given symptoms. Discharge home Discharge Disposition - Diagnosis Cough, Fever - Discharge Dispostion Disposition: HOME Condition at time of disposition: Good - Referrals - Patient Instructions Printed Discharge Instructions: [facility]-Coronavirus Instructions Additional Instructions: Although you did not get tested for Covid, I have enclosed instructions on virus You were seen for your cough and possible [place] virus (COVID-19) Please call the [facility] to make an appointment for a test [phone] Take Tylenol 650mg every 4 hours as needed for fever or pain You may take robitussin or other over the counter cough syrup. Follow the dosing instructions on the bottle. Warm tea, honey, and salt water gargles may help your symptoms. Please pretend like you tested positive for COVID and self-quarantine for two weeks and follow up with your primary care doctor and the department of health. Return to the ER for shortness of breath, difficulty breathing, chest pain, or if you have any changes in your symptoms. - Post Discharge Activity
== END 2020-01-14 13:52 | disposition home or self-care (01) ==
LOC: JER 12:29
DX: Z03.818 Encounter for observation for suspected exposure to other biological agents ruled out (principal); R50.9 Fever, unspecified; R05 Cough; G35 Multiple sclerosis; Z85.41 Personal history of malignant neoplasm of cervix uteri; Z88.1 Allergy status to other antibiotic agents
CPT/HCPCS: 71045-TC-FY; 99283-25

== ENCOUNTER 2020-01-19 14:51 | Emergency (ER) | payer OTHER ==
[2020-01-19 14:59] VITALS: BP 137/96; PULSE 116; TEMP 97.8
--- NOTE | 2020-01-19 15:11 | PDOC ---
Rapid Medical Evaluation Chief Complaint: Cold Symptoms Time Seen by Provider: 01/19/20 14:58 Medical Evaluation: Allergies Allergy/AdvReac Type Severity Reaction Status Date / Time azithromycin [From Zithromax] Allergy Severe Swelling Verified 01/19/20 14:53 Vital Signs Temp Pulse Resp BP Pulse Ox 97.8 F 116 H 16 137/96 96 01/19/20 14:55 01/19/20 14:55 01/19/20 14:55 01/19/20 14:55 01/19/20 14:55 01/19/20 15:06 HPI: The patient is a 54 y/o female with hx of MS, who presents for temperature of 99.0 intermittently for 7 days. The patient has no exposure to coronavirus. -) Recent travel. They are concerned they have coronavirus and present for testing. - difficulty breathing, shortness of breath, chest pain, lightheadedness, dizziness nausea, vomiting, and diarrhea. Other 12 point ROS reviewed and negative. EXAM: General: NAD, well-appearing, AAO x3. tachycardic ENT: No rhinorrhea or nasal congestion. Neck: FROM, no midline tenderness Lungs: Clear to auscultation bilateral without wheezes rales or rhonchi. Normal excursion. Patient is able to speak in full sentences. Heart: Regular rhythm, S1-S2 present, no murmurs rubs or gallops. Abdomen: Non-distended MSK/Extremities: no decreased ROM, no obvious deformities. No cyanosis Neuro: Normal gait, cranial nerves II through XII grossly intact. SKIN: No rashes, bruising. Color normal appearing A/P: temperature of 99.0 intermittently x 10 days Patient has history of MS, denies recent travel and known COVID exposure. Patient does not meet criteria for testing at this time. Spoke to Dr. Aldrich's secetary (pts PCP) and agrees to send pt home if pt is aymptomatic here and has appt for covid testing tomorrow 01/20/20 18:03 Discharge Disposition - Diagnosis Advice given about COVID-19 virus infection - Discharge Dispostion Disposition: HOME Condition at time of disposition: Good - Referrals Referrals: Jenn Aldrich MD [Primary Care Provider] - - Patient Instructions Printed Discharge Instructions: [facility]-Coronavirus Instructions, [facility] COVID-19 Isolation Protocol Additional Instructions: You were seen for your cough and possible [place] virus (COVID-19) Please go to get tested for covid tomorrow as scheduled Take Tylenol 650mg every 6hours as needed for fever or pain You may take robitussin or other over the counter cough syrup. Follow the dosing instructions on the bottle. Warm tea, honey, and salt water gargles may help your symptoms. Return to the ER for shortness of breath, difficulty breathing, chest pain, or if you have any changes in your symptoms - Post Discharge Activity
== END 2020-01-19 15:28 | disposition home or self-care (01) ==
LOC: JER 14:51
DX: R50.9 Fever, unspecified (principal)
CPT/HCPCS: 99282-25

== ENCOUNTER 2021-01-06 09:01 | Emergency (ER) | payer OTHER ==
[2021-01-06 09:41] VITALS: BP 138/74; PULSE 63; TEMP 98.1; BMI 23.9
[2021-01-06] MEDS ORDERED: IBUPROFEN 400 MG TABLET (FP) PO ONE (10:07)
[2021-01-06] MEDS ORDERED: IBUPROFEN 600 MG TABLET (FP) PO ONE (10:18)
== END 2021-01-06 10:35 | disposition home or self-care (01) ==
LOC: JERFT 09:01
DX: S73.101A Unspecified sprain of right hip, initial encounter (principal)
CPT/HCPCS: 73070-TC-RT-FY; 73523-TC-FY; 99284-25

== ENCOUNTER 2021-05-20 00:23 | Emergency (ER) | payer OTHER ==
[2021-05-20 00:46] VITALS: BP 143/82; PULSE 71; TEMP 98.3; BMI 22.3
[2021-05-20 01:20] LABS: BASO % 1.3 % (0-2.0); EOS % 1.3 % (0-4.5); HEMOGLOBIN 13.5 GM/dL (10.7-15.3); LYMPH % 33.9 % (8-40); MCH 28.9 pg (25.7-33.7); MCHC 33.8 g/dl (32.0-36.0); MEAN CELL VOLUME 85.4 fl (80-96); MONO % 7.3 % (3.8-10.2); NEUT % 56.2 % (42.8-82.8); PLATELET COUNT 227 10^3/uL (134-434); RBC 4.68 M/mm3 (3.60-5.2); RDW 13.5 % (11.6-15.6); WHITE BLOOD COUNT 6.3 K/mm3 (4.0-10.0)
[2021-05-20] MEDS ORDERED: LIDOCAINE 5% TOPICAL PATCH TP ONE (01:21)
[2021-05-20] MEDS ORDERED: ACETAMINOPHEN 500 MG TABLET (FP) PO ONE (01:21)
[2021-05-20 01:32] LABS: INR 0.98 (0.83-1.09); PROTHROMBIN TIME (PATIENT) 12.1 SEC (9.7-13.0)
[2021-05-20 01:34] LABS: ACTIVATED PTT 26.4 SECONDS (25.2-36.5)
[2021-05-20] MEDS ORDERED: LIDOCAINE 5% TOPICAL PATCH ONE (01:43)
[2021-05-20] MEDS ORDERED: ACETAMINOPHEN 500 MG TABLET (FP) ONE (01:44)
[2021-05-20 01:59] LABS: CHLORIDE 111 mmol/L (98-107); SODIUM 141 mmol/L (136-145)
[2021-05-20 02:00] LABS: CALCIUM 8.5 mg/dL (8.5-10.1); GLUCOSE,RANDOM 89 mg/dL (74-106)
[2021-05-20 02:01] LABS: ALBUMIN 3.6 g/dl (3.4-5.0); ANION GAP 5 MMOL/L (8-16); CO2 25 mmol/L (21-32)
[2021-05-20 02:04] LABS: CREATININE 0.7 mg/dL (0.55-1.3); SGOT/AST 32 U/L (15-37); SGPT/ALT 21 U/L (13-61)
[2021-05-20 02:06] LABS: TOT PROT 7.3 g/dl (6.4-8.2)
[2021-05-20 02:07] LABS: ALK PHOS 74 U/L (45-117); BILIRUBIN,TOTAL 0.4 mg/dL (0.2-1)
[2021-05-20] MEDS ORDERED: LIDOCAINE PATCH REMOVAL MC SCH (22:00)
== END 2021-05-20 03:31 | disposition home or self-care (01) ==
LOC: JER 00:23
DX: R07.82 Intercostal pain (principal)
CPT/HCPCS: 36415; 71046-TC-FY; 80053; 84484; 85025; 85610; 85730; 93005; 93010; 99285-25

== ENCOUNTER 2021-05-20 12:00 | Emergency (ER) | payer OTHER ==
[2021-05-20 12:10] VITALS: BP 146/78; PULSE 60; TEMP 98; BMI 22.3
[2021-05-20] MEDS ORDERED: ACETAMINOPHEN 500 MG TABLET (FP) PO ONE (14:18)
[2021-05-20] MEDS ORDERED: ACETAMINOPHEN 325 MG TABLET (FP) ONE (15:21)
== END 2021-05-20 19:05 | disposition home or self-care (01) ==
LOC: JER 12:00
DX: R07.89 Other chest pain (principal)
CPT/HCPCS: 36415; 84484; 93005; 93010; 99284-25

== ENCOUNTER → 2021-12-12 | Emergency (ER) | payer OTHER ==
[2021-12-12 02:58] VITALS: BP 162/95; PULSE 79; TEMP 97.6; BMI 24.0
== END | disposition home or self-care (01) ==
LOC: JER 02:49
DX: R04.0 Epistaxis (principal)
CPT/HCPCS: 99282-25